=== PATIENT | female | born 1995 | race Caucasian/White ===

== ENCOUNTER 2018-01-31 12:12 | Emergency (ER) | payer SELFPAY ==
[~2018-01-31] VITALS: Ht 167.6 cm; Wt 73.0 kg
[2018-01-31 12:30] VITALS: BP 108/74
== END 2018-01-31 13:43 | disposition home or self-care (01) ==
LOC: ED 13:37
DX: H65.01 Acute serous otitis media, right ear (principal); J00 Acute nasopharyngitis [common cold]
CPT/HCPCS: 99283

== ENCOUNTER 2021-01-10 16:51 | Emergency (ER) | payer MEDICAID ==
--- NOTE | 2021-01-10 17:11 | NUR ---
nil x 1
--- NOTE | 2021-01-10 17:15 | NUR ---
nil x2
--- NOTE | 2021-01-10 17:28 | NUR ---
nil x 3
== END 2021-01-10 17:30 | disposition left against medical advice (07) ==
LOC: ED 17:20
DX: R10.2 Pelvic and perineal pain (principal); Z53.21 Procedure and treatment not carried out due to patient leaving prior to being seen by health care provider

== ENCOUNTER 2021-01-11 23:37 | Emergency (ER) | payer MEDICAID ==
[~2021-01-11] VITALS: Ht 165.1 cm; Wt 70.7 kg
[2021-01-11 23:51] VITALS: BP 108/59
--- NOTE | 2021-01-12 01:04 | NUR ---
Pt not in lobby when called for room.
--- NOTE | 2021-01-12 01:39 | NUR ---
Pt not in lobby when called for room.
== END 2021-01-12 02:15 | disposition left against medical advice (07) ==
LOC: ED 01-12 02:09
DX: Z53.21 Procedure and treatment not carried out due to patient leaving prior to being seen by health care provider (principal)